=== PATIENT | male | born 1980 | race Two or more races ===

== ENCOUNTER 2019-07-18 23:10 | Inpatient (IN) | payer BC, OTHER ==
[~2019-07-18] VITALS: Ht 177.8 cm; Wt 131.4 kg
[2019-07-19] MEDS ORDERED: LEVETIRACETAM INJ 1,000 MG in D5W 5% 100 ML IV ONE (00:45)
[2019-07-19] MEDS ORDERED: LORazepam 2MG/ML-1ML VIAL IV ONE (01:00)
[2019-07-19] MEDS ORDERED: LEVETIRACETAM 500 MG/5ML INJ IV ONE (01:19)
[2019-07-19 01:21] LABS: Basophils # (auto) 0.3 uL; Eosinophils # (auto) 0.1 uL; Eosinophils % (auto) 0.7 % (0.0-7.0); Hematocrit 46.7 % (41.0-53.0); Hemoglobin 16.5 g/dL (13.5-17.5); Lymphocytes # (auto) 1.7 uL; Lymphocytes % (auto) 12.8 % (10.0-50.0); Mean Corpuscular Hemoglobin 32.6 pg (28.0-32.0); Mean Corpuscular Hgb Conc. 35.3 g/dL (32.0-36.0); Mean Corpuscular Volume 92.3 fL (80.0-100.0); Monocytes # (auto) 1.1 uL; Monocytes % (auto) 8.1 % (0.0-12.0); Neutrophils # (auto) 10.1 uL; Neutrophils % (auto) 76.4 % (37.0-80.0); Nucleated Red Blood Cells % 0.1 %; Platelet Count (auto) 213 10^3/uL (140-450); Red Blood Cells 5.05 10^6/uL (4.5-5.90); Red Cell Distribution Width 13.2 % (11.8-14.3); White Blood Cell 13.3 10^3/uL (4.4-10.8)
[2019-07-19 01:40] LABS: Alanine Aminotransferase 60 U/L (16-61); Albumin 3.4 g/dL (3.4-5.0); Anion Gap 9 (5-15); Aspartate Aminotransferase 38 U/L (15-37); BUN/Creatinine Ratio 17.5; Blood Alcohol < 3.0 mg/dL (0-5); Blood Urea Nitrogen 20 mg/dL (7-18); Calcium 8.2 mg/dL (8.5-10.1); Carbon Dioxide 22 mmol/L (21-32); Chloride 107 mmol/L (98-107); GFR African American 93 mL/min; GFR Non-African American 77 mL/min; Glucose 113 mg/dL (74-106); Magnesium 2.7 mg/dL (1.6-2.6); Sodium 138 mmol/L (136-145)
[2019-07-19 01:45] LABS: Alkaline Phosphatase 55 U/L (45-117); Bilirubin, Total 0.4 mg/dL (0.2-1.0); Total Protein 7.3 g/dL (6.4-8.2)
[2019-07-19 03:07] LABS: Urine Bacteria FEW /hpf (None Seen); Urine Blood 1+ /uL (Negative); Urine Hyaline Cast FEW /lpf (0 - 2); Urine Mucus FEW (None Seen); Urine WBC 3 /hpf (0 - 3)
[2019-07-19 03:15] LABS: Alcohol, Urine < 3.0 mg/dL (0-5); Amphetamine Screen, Urine NEGATIVE (NEGATIVE); Barbiturate Scree,Urine NEGATIVE (NEGATIVE); Benzodiazephine Screen, Urine NEGATIVE (NEGATIVE); Cannabinoid Screen, Urine NEGATIVE (NEGATIVE); Cocaine Screen, Urine NEGATIVE (NEGATIVE); Opiate Scree,Urine NEGATIVE (NEGATIVE); Phencyclidine Screen, Urine NEGATIVE (NEGATIVE)
[2019-07-19] MEDS ORDERED: ONDANSETRON HCL 4 MG/2 ML VIAL IV PRN (06:45)
[2019-07-19] MEDS ORDERED: ACETAMINOPHEN 325 MG TAB PO PRN (06:45)
[2019-07-19] MEDS ORDERED: DOCUSATE SOD 100 MG CAP PO PRN (06:45)
[2019-07-19] MEDS ORDERED: LORazepam 0.5 MG TAB PO PRN (06:45)
[2019-07-19] MEDS: SODIUM CHLORIDE 0.9% 1,000 ML IV SCH ×2 (07:06→22:05)
--- NOTE | 2019-07-19 08:12 | NUR ---
PATIENT BROUGHT TO ROOM 295B. NASAL CANNULA 2L, FAMILY AT BEDSIDE. SEIZURE PRECAUTIONS INITIATED. NO COMPLAINTS OR PAIN, OR DISTRESS, WILL CONTINUE TO MONITOR.
[2019-07-19] MEDS ORDERED: LISI-646 PO (09:05)
[2019-07-19] MEDS ORDERED: LEVO25TA6 PO (09:05)
[2019-07-19] MEDS ORDERED: ATEN50TA PO (09:05)
[2019-07-19] MEDS ORDERED: LEVOTHYROXINE SODIUM 25 MCG TAB PO ONE (12:45)
[2019-07-19 12:53] VITALS: BP 127/74
[2019-07-19] MEDS: LISINOPRIL 20 MG TAB PO SCH (14:02)
[2019-07-19] MEDS: ATENOLOL 50 MG TAB PO SCH (14:02)
[2019-07-19] MEDS ORDERED: LORazepam 2MG/ML-1ML VIAL IV PRN ×2 (16:45→17:30)
[2019-07-19 17:00] VITALS: BP 112/66
--- NOTE | 2019-07-19 17:00 | NUR ---
DOCTOR VILLA AT BEDSIDE.
[2019-07-19 22:00] VITALS: BP 116/69
[2019-07-19] MEDS: MORPHINE SULFATE 4 MG/ML SYR/VIAL IV PRN (22:06)
[2019-07-20] MEDS: MORPHINE SULFATE 4 MG/ML SYR/VIAL IV PRN ×5 (03:04→21:55)
--- NOTE | 2019-07-20 03:05 | NUR ---
IV removal IV to left AC DC'd with sterile technique, catheter fully intact. Pressure dressing applied to site. Patient tolerated procedure well.
--- NOTE | 2019-07-20 03:06 | NUR ---
IV insertion IV access to right FA obtained, via clean sterile technique by inserting 22 gauge catheter after first attempt. IV secured properly. No trauma to site. Patient tolerated procedure well.
[2019-07-20 06:00] VITALS: BP 114/67
[2019-07-20] MEDS ORDERED: LEVOTHYROXINE SODIUM 25 MCG TAB PO SCH (07:00)
[2019-07-20] MEDS: LEVOTHYROXINE SODIUM 100 MCG TAB PO SCH (07:00)
--- NOTE | 2019-07-20 07:47 | NUR ---
RECEIVED REPORT FROM NIGHT NURSE. PATIENT RESTING IN BED, NO DISTRESS NOTED. WILL CONTINUE TO MONITOR.
[2019-07-20 08:52] VITALS: BP 109/65
[2019-07-20] MEDS: LISINOPRIL 20 MG TAB PO SCH (09:53)
[2019-07-20] MEDS: ATENOLOL 50 MG TAB PO SCH (09:54)
--- NOTE | 2019-07-20 11:10 | NUR ---
EEG COMPLETED AT BEDSIDE.
[2019-07-20 12:46] VITALS: BP 119/73
[2019-07-20] MEDS: SODIUM CHLORIDE 0.9% 1,000 ML IV SCH (15:45)
[2019-07-20 17:16] VITALS: BP 123/63
[2019-07-20 22:00] VITALS: BP 129/66
[2019-07-21 05:00] VITALS: BP 111/48
[2019-07-21] MEDS: LEVOTHYROXINE SODIUM 100 MCG TAB PO SCH (06:09)
[2019-07-21] MEDS: MORPHINE SULFATE 4 MG/ML SYR/VIAL IV PRN ×4 (08:43→21:52)
[2019-07-21] MEDS: SODIUM CHLORIDE 0.9% 1,000 ML IV SCH (08:44)
[2019-07-21 08:53] VITALS: BP 120/66
--- NOTE | 2019-07-21 09:23 | NUR ---
PT TAKEN TO MRI, TRANSPORTED VIA WHEELCHAIR. NO S/S OF DISTRESS AT MOMENT.
--- NOTE | 2019-07-21 10:05 | NUR ---
PT BACK FROM PROCEDURE, SITTING AT BEDSIDE CHAIR. NO DISTRESS. CALL LIGHT WITHIN REACH.
[2019-07-21] MEDS: ATENOLOL 50 MG TAB PO SCH (10:47)
[2019-07-21] MEDS: LISINOPRIL 20 MG TAB PO SCH (10:47)
[2019-07-21 13:00] VITALS: BP 128/73
--- NOTE | 2019-07-21 13:15 | NUR ---
DR. JAEGER IN TO SEE PT. PLAN OF CARE DISCUSSED.
[2019-07-21 17:00] VITALS: BP 115/67
[2019-07-21 20:00] VITALS: BP 125/73
[2019-07-21] MEDS ORDERED: LORazepam 2MG/ML-1ML VIAL IV PRN (20:45)
[2019-07-21] MEDS: LEVETIRACETAM 500 MG TAB PO SCH (21:49)
[2019-07-21 21:53] VITALS: BP 125/73
[2019-07-21] MEDS: HYDROcodone-ACET 5/325MG TAB PO PRN (23:07)
[2019-07-22] MEDS: SODIUM CHLORIDE 0.9% 1,000 ML IV SCH ×2 (01:15→17:40)
[2019-07-22] MEDS: MORPHINE SULFATE 4 MG/ML SYR/VIAL IV PRN ×5 (01:41→20:56)
[2019-07-22] MEDS: HYDROcodone-ACET 5/325MG TAB PO PRN ×3 (03:39→20:56)
[2019-07-22 05:13] VITALS: BP 123/53
--- NOTE | 2019-07-22 06:14 | NUR ---
Pt frequently asks for pain meds, and obtains relief. Dr. Zapata called and ordered social service consult for higher level of care due to glioma. No seizure activity noted during noc shift.
[2019-07-22] MEDS: LEVOTHYROXINE SODIUM 100 MCG TAB PO SCH (06:46)
[2019-07-22 08:00] VITALS: BP 111/61
[2019-07-22] MEDS ORDERED: GADOTERIDOL 279.3mg/mL 20ml Vial IV ONE (08:40)
--- NOTE | 2019-07-22 09:25 | NUR ---
MRI WITH CONTRAST COMPLETED. PT REPORTS NAUSEA. WILL MEDICATE PER EMAR.
[2019-07-22] MEDS: ATENOLOL 50 MG TAB PO SCH (09:31)
[2019-07-22] MEDS: LEVETIRACETAM 500 MG TAB PO SCH ×2 (09:31→20:57)
[2019-07-22] MEDS: LISINOPRIL 20 MG TAB PO SCH (09:31)
--- NOTE | 2019-07-22 10:49 | NUR ---
STRATEGIC ADVISOR AWARE FOR HLOC Tx ORDER. MD JAEGER MADE AWARE OF STATUS.
[2019-07-22 12:00] VITALS: BP 103/59
--- NOTE | 2019-07-22 12:47 | NUR ---
I faxed higher level of care order to [facility].
--- NOTE | 2019-07-22 16:37 | NUR ---
I called [facility] transfer center to follow up on transfer request [phone] option 3 and was on hold for than 10 minutes-unable to speak with a live person and unable to leave a message. I called [facility] [phone] and spoke with Riccardo-placed patient on will-call.
[2019-07-22 17:00] VITALS: BP 115/62
[2019-07-22 20:00] VITALS: BP 130/72
[2019-07-22 22:00] VITALS: BP 130/72
[2019-07-23] MEDS: MORPHINE SULFATE 4 MG/ML SYR/VIAL IV PRN ×3 (01:08→11:46)
[2019-07-23 05:00] VITALS: BP 117/54
[2019-07-23] MEDS: LEVOTHYROXINE SODIUM 100 MCG TAB PO SCH (06:00)
--- NOTE | 2019-07-23 06:42 | NUR ---
Pt seen by DR. Zapata late yesterday evening. Cleared for discharge this am . Pt will go home, and await phone call from [facility]. He will be followed by Dr. Zapata until [facility] can follow him. No seizures during the night. Continues to request IV pain meds q 4 hour. BP 117/54 , r 20. Instructed pt that he will not be able to continue with IV pain meds. Pt states he has generalized pain from seizure activity prior to admission.
--- NOTE | 2019-07-23 07:30 | NUR ---
Opening Shift Note Assuming care of patient at this time. Patient is awake and alert. Patient complains of constant pain of 6-7/10. Patient shows no signs or symptoms of distress or shortness of breath. Bed is locked and lowered with side rails up x2. Instructed patient on the plan of care for today and to call for assistance as needed. Call light within reach. Will continue to round hourly and as needed.
[2019-07-23 08:00] VITALS: BP 113/65
--- NOTE | 2019-07-23 08:30 | NUR ---
Dr. Zapata Spoke with Dr. Zapata. Patient is clear for discharge and will follow-up as outpatient with Dr. Zapata.
[2019-07-23] MEDS: LEVETIRACETAM 500 MG TAB PO SCH (09:27)
[2019-07-23] MEDS: HYDROcodone-ACET 5/325MG TAB PO PRN (09:29)
[2019-07-23] MEDS: LISINOPRIL 20 MG TAB PO SCH (09:29)
[2019-07-23] MEDS: ATENOLOL 50 MG TAB PO SCH (09:29)
--- NOTE | 2019-07-23 10:25 | NUR ---
I called Rem at the [facility] transfer center [phone]-and she said that they can not accommodate this patient's needs. I called [facility] transfer center [phone] option 3 and spoke with Cecile, she said they are still waiting for their doctor to connect with our MD.
[2019-07-23] MEDS: SODIUM CHLORIDE 0.9% 1,000 ML IV SCH (10:35)
--- NOTE | 2019-07-23 11:39 | NUR ---
Nutrition Assessment Notes please see attached link for complete assessment Est. Needs ABW 103 [id number] kcal (17-20 kcal/kgBW), 103-113 gms pro (1.0-1.1 gms/kgBW). Will continue to monitor pertinent labs and reassess nutrient need prn Addendum: 07/23/19 at [address] Amended: Links added.
[2019-07-23 12:00] VITALS: BP 117/65
--- NOTE | 2019-07-23 16:30 | NUR ---
Discharge Discharge instructions given as ordered. Encourage to follow up with PMD as instructed. Patient states he has a primary care provider in [place] and does not want assistance in getting another. All questions and concerns addressed. Patient verbalized understanding. IV removed with catheter intact, pressure dressing applied. Patient taken to vehicle with all personal belongings, accompanied family member. No distress noted at time of departure. Patient states he is heading straight to [place]. Patient aware of his inability to drive per doctor's recommendations.
== END 2019-07-23 17:03 | disposition home or self-care (01) | DRG 101 ==
LOC: EDBD 23:10 → ER 23:13 → OVERFLOW 23:14 → WEST WING 07-19 08:14
PROVIDERS: ADMIT Hospitalist; ATTEND Family Medicine
DX: G40.409 Other generalized epilepsy and epileptic syndromes, not intractable, without status epilepticus (principal); Z68.41 Body mass index [BMI] 40.0-44.9, adult; I10 Essential (primary) hypertension; E03.9 Hypothyroidism, unspecified; E66.01 Morbid (severe) obesity due to excess calories; N26.1 Atrophy of kidney (terminal); Z79.899 Other long term (current) drug therapy; Z87.442 Personal history of urinary calculi; Z87.891 Personal history of nicotine dependence
CPT/HCPCS: 36415; 70450; 70551; 70553; 80053; 80307; 80320; 81001; 82962; 83735; 84443; 84484; 85025; 93005; 95819; G0378; J2405; J7060